=== PATIENT | female | born 1955 | race Caucasian/White ===

== ENCOUNTER 2018-07-17 07:48 | Emergency (ER) | END 2018-07-17 10:48 | disposition home or self-care (01) ==

== ENCOUNTER 2018-12-31 00:51 | Emergency (ER) | payer OTHER ==
[~2018-12-31] VITALS: Wt 104.8 kg
[~2018-12-31 00:51] MED LIST: ACET500C5 PO; TRAM50TA2 PO
[2018-12-31] MEDS ORDERED: morphine 4 MG/ML VIAL IV STA (01:14)
[2018-12-31] MEDS ORDERED: ONDANSETRON 4 MG INJ IV STA (01:14)
[2018-12-31] MEDS ORDERED: SOD CHLORIDE 0.9% 500 ML IV STA (01:14)
[2018-12-31] MEDS ORDERED: ACET-141 PO (02:14)
[2018-12-31] MEDS ORDERED: NIFE30TA43 PO (02:14)
[2018-12-31] MEDS ORDERED: RANI150T5 PO (02:14)
[2018-12-31 02:26] VITALS: BP 115/87; PULSE 78; RESP 18
[2018-12-31] MEDS ORDERED: CEPH-443 PO (02:30)
[2018-12-31] MEDS ORDERED: DOCU-144 PO (02:30)
--- NOTE | 2018-12-31 02:48 | ERD ---
ER Documentation Chief Complaint Chief Complaint AP, CONSTIPATION X'S 1 WEEK HPI This is a very pleasant 63-year-old female with complaints of constipation and abdominal pain related to constipation which is general diffuse nonlocalizing with associated nausea. She also complains of mild urgency and frequency of urination. No fevers or chills. No sick contacts. No recent travel. No abdominal trauma. ROS All systems reviewed and are negative except as per history of present illness. Medications Home Meds Active Scripts Docusate Sodium* (Colace*) 100 Mg Capsule, 100 MG PO TID, #10 CAP Prov:REBECCA LEIAV. 12/31/18 Cephalexin* (Keflex*) 500 Mg Capsule, 500 MG PO QID for 5 Days, CAP Prov:REBECCA LEIVA. 12/31/18 Reported Medications Acetaminophen* (Acetaminophen*) 500 MG Extra Strength Tablet, 500 MG PO Q4H PRN for PAIN AND OR ELEVATED TEMP, TAB 12/31/18 Ranitidine Hcl* (Ranitidine Hcl*) 150 Mg Tablet, 150 MG PO HS, #30 TAB 12/31/18 Nifedipine* (Adalat CC*) 30 Mg Tablet.sa, 30 MG PO DAILY, #30 TAB.SA 12/31/18 Discontinued Reported Medications [none] Unknown Strength No Conflict Check 03/22/16 Discontinued Scripts Tramadol HCl (Tramadol HCl) 50 Mg Tablet, 50 MG PO Q4 PRN for SEVERE PAIN LEVEL 7-10, #20 TAB Prov:YUNI CUELLO NP 03/22/16 Acetaminophen* (Tylophen*) 500 Mg Capsule, 1 CAP PO Q6H PRN for PAIN AND OR ELEVATED TEMP, #20 CAP Prov:YUNI CUELLO TOOL MARKER 03/22/16 Allergies Allergies: Coded Allergies: No Known Drug Allergies (Unverified Allergy, Unknown, 12/31/18) PMhx/Soc Anesthesia Reaction: No Hx Neurological Disorder: No Hx Respiratory Disorders: No Hx Cardiac Disorders: Yes (HTN, Cholesterol) Hx Psychiatric Problems: No Hx Miscellaneous Medical Probl: No Hx Alcohol Use: No Hx Substance Use: No Hx Tobacco Use: Yes Smoking Status: Current some day smoker Physical Exam Vitals Vital Signs Date Temp Pulse Resp B/P (MAP) Pulse Ox O2 O2 Flow FiO2 Time Delivery Rate 12/31/18 78 18 115/87 100 Room Air 02:26 (96) 12/31/18 78 18 132/74 98 Room Air 01:00 (93) 12/31/18 97.4 81 18 181/76 97 00:55 (111) Physical Exam Const: No acute distress Head: Atraumatic Eyes: Normal Conjunctiva ENT: Normal External Ears, Nose and Mouth. Neck: Full range of motion. No meningismus. Resp: Clear to auscultation bilaterally Cardio: Regular rate and rhythm, no murmurs Abd: Soft, non tender, non distended. Normal bowel sounds Skin: No petechiae or rashes Back: No midline or flank tenderness Ext: No cyanosis, or edema Neur: Awake and alert Psych: Normal Mood and Affect Result Diagram: 12/31/1810412/31/18104 Results 24 hrs Laboratory Tests Test 12/31/18 01:05 12/31/18 01:17 White Blood Count 8.6 10^3/ul Red Blood Count 4.57 10^6/ul Hemoglobin 13.7 g/dl Hematocrit 41.3 % Mean Corpuscular Volume 90.4 fl Mean Corpuscular Hemoglobin 30.0 pg Mean Corpuscular Hemoglobin Concent 33.2 g/dl Red Cell Distribution Width 12.3 % Platelet Count 212 10^3/UL Mean Platelet Volume 12.2 fl Immature Granulocytes % 0.200 % Neutrophils % 48.3 % Lymphocytes % 38.9 % Monocytes % 9.0 % Eosinophils % 3.0 % Basophils % 0.6 % Nucleated Red Blood Cells % 0.0 /100WBC Immature Granulocytes # 0.020 10^3/ul Neutrophils # 4.2 10^3/ul Lymphocytes # 3.4 10^3/ul Monocytes # 0.8 10^3/ul Eosinophils # 0.3 10^3/ul Basophils # 0.1 10^3/ul Nucleated Red Blood Cells # 0.0 10^3/ul Prothrombin Time 12.1 Sec Prothrombin Time Ratio 0.9 INR International Normalized Ratio 0.89 Activated Partial Thromboplast Time 26.1 Sec Urine Color YELLOW Urine Clarity CLOUDY Urine pH 7.0 Urine Specific [place] 1.018 Urine Ketones NEGATIVE mg/dL Urine Nitrite NEGATIVE mg/dL Urine Bilirubin NEGATIVE mg/dL Urine Urobilinogen NEGATIVE mg/dL Urine Leukocyte Esterase TRACE [place]/ul Urine Microscopic RBC 1 /HPF Urine Microscopic WBC 17 /HPF Urine Squamous Epithelial Cells MANY /HPF Urine Mucus FEW /HPF Urine Hemoglobin NEGATIVE mg/dL Urine Glucose NEGATIVE mg/dL Urine Total Protein NEGATIVE mg/dl Sodium Level 142 mmol/L Potassium Level 3.9 mmol/L Chloride Level 105 mmol/L Carbon Dioxide Level 25 mmol/L Anion Gap 12 Blood Urea Nitrogen 15 mg/dl Creatinine 0.60 mg/dl Est Glomerular Filtrat Rate mL/min > 60 mL/min Glucose Level 98 mg/dl Calcium Level 9.2 mg/dl Total Bilirubin 0.2 mg/dl Direct Bilirubin 0.00 mg/dl Indirect Bilirubin 0.2 mg/dl Aspartate Amino Transf (AST/SGOT) 35 IU/L Alanine Aminotransferase (ALT/SGPT) 26 IU/L Alkaline Phosphatase 135 IU/L Total Protein 8.5 g/dl Albumin 4.5 g/dl Globulin 4.00 g/dl Albumin/Globulin Ratio 1.12 Lipase 108 U/L Bedside Urine pH (LAB) 7.0 Bedside Urine Protein (LAB) Negative Bedside Urine Glucose (UA) Negative Bedside Urine Ketones (LAB) Negative Bedside Urine Blood Trace-intact Bedside Urine Nitrite (LAB) Negative Bedside Urine Leukocyte Esterase (L Trace Current Medications Medications Dose Sig/Jose Start Time Status Last (Trade) Ordered Route PRN Stop Time Admin Dose Reason Admin Sodium 500 ml @ Q1H STAT 12/31/18 DC 12/31/18 Chloride 500 mls/hr IV 01:14 01:24 12/31/18 02:13 Morphine 4 mg ONCE STAT 12/31/18 DC 12/31/18 Sulfate IV 01:14 01:25 (morphine) 12/31/18 01:16 Ondansetron 4 mg ONCE STAT 12/31/18 DC 12/31/18 HCl (Zofran IV 01:14 01:25 Inj) 12/31/18 01:16 Procedures/MDM X-ray Abdomen 1V Interpreted by me: Free Air: [None] Bowel Gas: [Nonspecific] Soft Tissue: [Normal] Medical decision making: Patient's gastrointestinal symptoms have stabilized while in the department. No evidence of severe dehydration, sepsis, or surgical abdomen. Extensive discussion with family and patient that occult disease cannot be ruled out. 8 hour recheck for repeat abdominal exam is planned. Patient had evidence of constipation UTI. Treated with Colace and Keflex. Strict aftercare instructions given to return for any return or worsening of abdominal pain nausea vomiting fevers chills. Also recommended 8-hour follow-up. Follow-up PCP tomorrow. Departure Diagnosis: Primary Impression: Abdominal pain Abdominal location: unspecified location Qualified Codes: R10.9 - Unspecified abdominal pain Condition: Stable Patient Instructions: Understanding Urinary Tract Infections (UTIs), Constipation (Adult) REBECCA LEIVA Dec 31, 2018 02:41
== END 2018-12-31 02:44 | disposition home or self-care (01) ==
LOC: E/R 00:51
DX: R10.9 Unspecified abdominal pain (principal); I10 Essential (primary) hypertension; F17.210 Nicotine dependence, cigarettes, uncomplicated
CPT/HCPCS: 36415; 74018; 80053; 81001; 83690; 85025; 85610; 85730; 87086; 96374; 96375; J2270; J2405; J7040; Z7502; Z7610; 81003

== ENCOUNTER 2019-01-03 05:11 | Emergency (ER) | payer OTHER ==
[~2019-01-03] VITALS: Ht 152.4 cm; Wt 103.9 kg
[~2019-01-03 05:11] MED LIST changes: +ACET-141 PO; -ACET500C5 PO; +CEPH-443 PO; +DOCU-144 PO; +NIFE30TA43 PO; +RANI150T5 PO; -TRAM50TA2 PO
[2019-01-03 05:15] VITALS: Ht 152.4 cm; Wt 103.9 kg
--- NOTE | 2019-01-03 06:29 | ERD ---
ER Documentation Chief Complaint Chief Complaint states constipation x 1 week HPI This is a 63-year-old female who is here for constipation. The patient states that she was here last week for constipation and was given some Colace which is done nothing. She says that her last bowel movement was about a week ago that was only a small volume stool she says her abdominal cavity feels distended with generalized discomfort no nausea vomiting diarrhea fever no back pain. She is here for help with bowel movement ROS All systems reviewed and are negative except as per history of present illness. Medications Home Meds Active Scripts Polyethylene Glycol* (Miralax*) 17 Gm Powd.pack, 17 GM PO DAILY, #7 Prov:JOHN RICK DO 01/03/19 Docusate Sodium* (Colace*) 100 Mg Capsule, 100 MG PO TID, #10 CAP Prov:REBECCA LEIVA S. 12/31/18 Cephalexin* (Keflex*) 500 Mg Capsule, 500 MG PO QID for 5 Days, CAP Prov:REBECCA LEIVA 12/31/18 Reported Medications Acetaminophen* (Acetaminophen*) 500 MG Extra Strength Tablet, 500 MG PO Q4H PRN for PAIN AND OR ELEVATED TEMP, TAB 12/31/18 Ranitidine Hcl* (Ranitidine Hcl*) 150 Mg Tablet, 150 MG PO HS, #30 TAB 12/31/18 Nifedipine* (Adalat CC*) 30 Mg Tablet.sa, 30 MG PO DAILY, #30 TAB.SA 12/31/18 Discontinued Reported Medications [none] Unknown Strength No Conflict Check 03/22/16 Discontinued Scripts Tramadol HCl (Tramadol HCl) 50 Mg Tablet, 50 MG PO Q4 PRN for SEVERE PAIN LEVEL 7-10, #20 TAB Prov:YUNI CUELLO LUMBER PULLER 03/22/16 Acetaminophen* (Tylophen*) 500 Mg Capsule, 1 CAP PO Q6H PRN for PAIN AND OR ELEVATED TEMP, #20 CAP Prov:YUNI CUELLO LUMBER PULLER 03/22/16 Allergies Allergies: Coded Allergies: No Known Drug Allergies (Unverified Allergy, Unknown, 12/31/18) PMhx/Soc Anesthesia Reaction: No Hx Neurological Disorder: No Hx Respiratory Disorders: No Hx Cardiac Disorders: Yes (HTN, Cholesterol) Hx Psychiatric Problems: No Hx Miscellaneous Medical Probl: No Hx Alcohol Use: No Hx Substance Use: No Hx Tobacco Use: Yes Smoking Status: Current some day smoker FmHx Family History: No coronary disease Physical Exam Vitals Vital Signs Date Temp Pulse Resp B/P (MAP) Pulse Ox O2 O2 Flow FiO2 Time Delivery Rate 01/03/19 97.4 70 18 176/83 97 05:15 (114) Physical Exam Const: Well-developed, well-nourished Head: Atraumatic, normocephalic Eyes: Normal Conjunctiva, PERRLA, EOMI, normal sclera, no nystagmus ENT: Normal External Ears, Nose and Mouth, moist mucus membranes. Neck: Full range of motion. No meningismus, no lymphadenopathy. Resp: Clear to auscultation bilaterally, no wheezing, rhonchi, rales Cardio: Regular rate and rhythm, no murmurs, S1 S2 present Abd: Soft, non tender x 4, non distended. Very mild diffuse tenderness normal bowel sounds, no guarding or rebound, no pulsitile abdominal masses or bruits Skin: No petechiae or rashes, no ecchymosis , no maculopapular rash Back: No midline or flank tenderness Ext: No cyanosis, or edema, FROM x 4, normal inspection, neurovascularly intact x 4 Neur: Awake and alert, STR 5/5 x 4, sensation intact x 4, no focal findings, cerebellum intact Psych: Normal Mood and Affect Result Diagram: 01/03/19 0633 01/03/19 0633 Results 24 hrs Laboratory Tests Test 01/03/19 06:33 White Blood Count 5.3 10^3/ul Red Blood Count 4.55 10^6/ul Hemoglobin 13.6 g/dl Hematocrit 40.5 % Mean Corpuscular Volume 89.0 fl Mean Corpuscular Hemoglobin 29.9 pg Mean Corpuscular Hemoglobin Concent 33.6 g/dl Red Cell Distribution Width 12.5 % Platelet Count 207 10^3/UL Mean Platelet Volume 12.6 fl Immature Granulocytes % 0.200 % Neutrophils % 39.6 % Lymphocytes % 45.3 % Monocytes % 9.9 % Eosinophils % 4.1 % Basophils % 0.9 % Nucleated Red Blood Cells % 0.0 /100WBC Immature Granulocytes # 0.010 10^3/ul Neutrophils # 2.1 10^3/ul Lymphocytes # 2.4 10^3/ul Monocytes # 0.5 10^3/ul Eosinophils # 0.2 10^3/ul Basophils # 0.1 10^3/ul Nucleated Red Blood Cells # 0.0 10^3/ul Urine Color YELLOW Urine Clarity CLOUDY Urine pH 5.0 Urine Specific [place] 1.014 Urine Ketones NEGATIVE mg/dL Urine Nitrite NEGATIVE mg/dL Urine Bilirubin NEGATIVE mg/dL Urine Urobilinogen NEGATIVE mg/dL Urine Leukocyte Esterase NEGATIVE [place]/ul Urine Microscopic RBC 0 /HPF Urine Microscopic WBC 1 /HPF Urine Squamous Epithelial Cells MANY /HPF Urine Mucus FEW /HPF Urine Hemoglobin NEGATIVE mg/dL Urine Glucose NEGATIVE mg/dL Urine Total Protein NEGATIVE mg/dl Sodium Level 143 mmol/L Potassium Level 3.7 mmol/L Chloride Level 108 mmol/L Carbon Dioxide Level 26 mmol/L Anion Gap 9 Blood Urea Nitrogen 13 mg/dl Creatinine 0.54 mg/dl Est Glomerular Filtrat Rate mL/min > 60 mL/min Glucose Level 106 mg/dl Calcium Level 9.8 mg/dl Total Bilirubin 0.3 mg/dl Direct Bilirubin 0.00 mg/dl Indirect Bilirubin 0.3 mg/dl Aspartate Amino Transf (AST/SGOT) 37 IU/L Alanine Aminotransferase (ALT/SGPT) 27 IU/L Alkaline Phosphatase 126 IU/L Total Protein 8.0 g/dl Albumin 4.3 g/dl Globulin 3.70 g/dl Albumin/Globulin Ratio 1.16 Lipase 79 U/L Current Medications Medications Dose Sig/Jose Start Time Status Last (Trade) Ordered Route PRN Stop Time Admin Dose Reason Admin Sodium 133 ml ONCE ONCE 01/03/19 DC 01/03/19 Biphosphate/ SC 06:30 06:43 Sodium 01/03/19 06:31 Phosphate (Fleet Enema) Mineral Oil 133 ml ONCE ONCE 01/03/19 DC 01/03/19 (Fleet SC 07:30 07:32 Mineral Oil 01/03/19 07:31 Enema) Sodium 133 ml ONCE ONCE 01/03/19 DC 01/03/19 Biphosphate/ SC 08:30 08:39 Sodium 01/03/19 08:31 Phosphate (Fleet Enema) Procedures/MDM Took fleet enema x 2 = large BM and feels 100% better Departure Diagnosis: Primary Impression: Constipation Constipation type: unspecified constipation type Qualified Codes: K59.00 - Constipation, unspecified Condition: Stable JOHN RICK DO Jan 03, 2019 06:29
[2019-01-03] MEDS ORDERED: NA PHOSPHATE/BIPHOS 133 ML ENEMA PR ONE ×2 (06:30→08:30)
[2019-01-03] MEDS ORDERED: MINERAL OIL 133 ML ENEMA PR ONE (07:30)
[2019-01-03] MEDS ORDERED: POLY17PO6 PO (09:14)
[2019-01-03 09:30] VITALS: BP 154/89; PULSE 81; RESP 16
== END 2019-01-03 09:30 | disposition home or self-care (01) ==
LOC: FTE 05:11 → E/R 09:30
DX: K59.00 Constipation, unspecified (principal); I10 Essential (primary) hypertension; F17.210 Nicotine dependence, cigarettes, uncomplicated
CPT/HCPCS: 36415; 80053; 81001; 83690; 85025; Z7502; Z7610; 99283

== ENCOUNTER 2019-07-02 04:39 | Emergency (ER) | payer OTHER ==
[~2019-07-02] VITALS: Ht 157.5 cm; Wt 102.7 kg
[~2019-07-02 04:39] MED LIST changes: +AMLO-147 PO; +DULO30CA48 PO; -NIFE30TA43 PO; +POLY17PO6 PO; +[UNRECOGNIZED DRUG - CODE] PO; +[UNRECOGNIZED DRUG - OTHER] ORAL; +[UNRECOGNIZED DRUG - OTHER] ORAL; +[UNRECOGNIZED DRUG - REMARK] ORAL
[2019-07-02 04:43] VITALS: Ht 157.5 cm; Wt 102.7 kg
[2019-07-02] MEDS ORDERED: SOD CHLORIDE 0.9% 1,000 ML IV STA (06:33)
[2019-07-02] MEDS ORDERED: morphine 4 MG/ML VIAL IV STA (06:33)
[2019-07-02] MEDS ORDERED: ONDANSETRON 4 MG INJ IV STA (06:33)
[2019-07-02 12:20] VITALS: BP 152/80; PULSE 70; RESP 16
== END 2019-07-02 12:22 | disposition home or self-care (01) ==
LOC: E/R 04:39
DX: I10 Essential (primary) hypertension (principal); R94.6 Abnormal results of thyroid function studies; Z87.891 Personal history of nicotine dependence
CPT/HCPCS: 70450; 80053; 81001; 82550; 82553; 83880; 84436; 84443; 84479; 84484; 85025; 85610; 85730; 93005; J7030; Z7610; 36415; J2270; J2405